=== PATIENT | female | born 2000 | race Caucasian/White ===

== ENCOUNTER 2020-09-02 17:59 | Outpatient (REF) | payer MEDICAID, SELFPAY ==
[2020-09-05 14:06] LABS: N gonorrhoeae amplified RNA Negative (Negative); Source URINE
[2020-09-06 10:45] LABS: Chlamydia amplified RNA Positive (Negative)
== END 2020-09-02 18:19 ==
LOC: LBN 17:59
PROVIDERS: PCP Student in an Organized Health Care Education/Training Program; Visit Provider Student in an Organized Health Care Education/Training Program
DX: Z20.2 Contact with and (suspected) exposure to infections with a predominantly sexual mode of transmission (principal)
CPT/HCPCS: 87491; 87591

== ENCOUNTER 2020-09-08 01:43 | Outpatient (CLI) | payer MEDICAID, SELFPAY ==
[2020-09-08 08:55] LABS: HCT 40.2 % (36.0-46.0); MCH 28.4 pg (27.0-33.0); MCHC 32.3 % (32.0-36.0); MPV 10.5 fL (8.0-11.0); Platelet Count 237 10^3/uL (130-400); RBC 4.57 10^6/uL (3.93-5.22); RDW 13.4 % (11.7-14.6); WBC 8.15 10^3/uL (4.4-10.8)
[2020-09-08 10:46] LABS: Anion Gap 10.9 mmol/L (3-11); BUN 15 mg/dL (7-18); CO2 26.1 mmol/L (21.0-32.0); CREATININE 0.94 mg/dL (0.55-1.02); Calcium 8.9 mg/dL (8.5-10.1); Chloride 105 mmol/L (98-107); Glucose 75 mg/dL (74-106); Sodium 142 mmol/L (136-145); TSH (W/Ref FT4) 1.48 uIU/mL (0.36-3.74)
[2020-09-09 18:58] LABS: HBV DNA Detect/Quant, PCR Undetected IU/mL (Undetected)
[2020-09-10 09:43] LABS: HIV-1/2 Ag & Ab Screen Negative (Negative)
[2020-09-10 11:29] LABS: Syphilis Total Ab w/Reflex Nonreactive (Nonreactive)
== END 2020-09-08 02:03 ==
PROVIDERS: PCP Student in an Organized Health Care Education/Training Program; Visit Provider Student in an Organized Health Care Education/Training Program
DX: F32.9 Major depressive disorder, single episode, unspecified (principal); R63.5 Abnormal weight gain; Z86.2 Personal history of diseases of the blood and blood-forming organs and certain disorders involving the immune mechanism; Z20.2 Contact with and (suspected) exposure to infections with a predominantly sexual mode of transmission; Z13.1 Encounter for screening for diabetes mellitus; E86.0 Dehydration; Z83.3 Family history of diabetes mellitus
CPT/HCPCS: 36415; 80048; 85027; 87389; 87517; 84443; 86592; 86780

== ENCOUNTER 2020-09-21 00:39 | Outpatient (CLI) | payer MEDICAID, SELFPAY ==
--- NOTE | 2020-09-21 07:15 | DI.US_ITS ---
EXAM: US BREAST LT LIMITED CLINICAL HISTORY: Evaluation of papule,SKIN LESION, N64.9, DRAINAGE WITHOUT RESOLUTION TECHNIQUE: Ultrasound performed using standard protocol. COMPARISON: No exams were available for comparison FINDINGS: Ultrasound examination of left breast was performed to evaluate a small cyst subcutaneous nodule with associated skin papule. This corresponds to 4 millimeter in diameter subcutaneous low echogenicity lesion, probably cystic, no Doppler flow identified in the area. This is well circumscribed and homo geneous. IMPRESSION: 4 millimeters subcutaneous benign-appearing nodule, possible small sebaceous cyst. Clinical follow-u p recommended. DATA REPOSITORY:
== END 2020-09-21 00:59 ==
PROVIDERS: PCP Student in an Organized Health Care Education/Training Program; Visit Provider Student in an Organized Health Care Education/Training Program
DX: N60.02 Solitary cyst of left breast (principal); N64.89 Other specified disorders of breast
CPT/HCPCS: 76642

== ENCOUNTER 2022-08-15 09:27 | Emergency (ER) | payer MEDICAID, SELFPAY ==
[2022-08-15 09:32] VITALS: BP 137/88; PULSE 99; RESP 20; TEMP 36.8; O2SAT 99
--- NOTE | 2022-08-15 10:00 | ED.GENADUL_ITS ---
Discharge Plan Disposition Patient Disposition: 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 then 2/week as needed bupropion HCl 150 mg tablet extended release 24 hr 150 mg PO BID Qty: 180 3RF Rx Instructions: Re-start, start @ 1 pill daily x 1 week .. then BID magnesium oxide 500 mg tablet 500 mg PO QHS Qty: 90 1RF PNV [id number]-dha 90 mg iron- 1 mg-200 mg capsule 1 cap PO DAILY Qty: 90 3RF Rx Instructions: Trial for FOLATE deficiency .. monitor BM with iron intake. Medical Decision Making 22-year-old F at 27w6d based on EVA 11/08/22 with history of ectopic with salpingectomy in 2017 and history of miscarriage at 5 weeks in October 2021 who presents with vaginal discharge and mild abdominal cramping this morning. Vitals within normal limits. Patient appears comfortable and nontoxic. Her abdomen is soft and nontender. Will call OB for recommendations. Case discussed with Dr. Moran who accepts patient for transfer to L&D for monitoring and NST. Discussed that patient is considering switching her care to [facility]. HPI General Mode of arrival: ambulatory . Date/Time Provider Initiated Documentation: 08/15/22 09:35 . Limitations to Documentation: no limitations . Information obtained by: patient . HPI Narrative: Patient is a 22-year-old female with h/o ectopic in 2018 with salpingectomy in [place] and h/o miscarriage at 5 weeks in October 2021 who presents for vaginal discharge and mild abdominal cramping this morning. Pt states she noticed that her underpants were wet this morning and noticed a large amount of clear yellow and tacky sticky discharge in her underwear. She then went to work and noticed mild abdominal cramping. She denies fever, vomiting, or vaginal bleeding. She states she is followed by [facility] and did not call them this morning because she did not want to bother them. Patient is unsure of her first date of her last period but states her delivery date is November 08 based on dating ultrasound. She states she was thinking of switching to OB here as it is closer to where she lives. Related Data Home Medications Medication Instructions Recorded Confirmed bupropion HCl 150 mg 24 hr tablet, 150 mg PO BID #180 tabs 07/19/21 04/18/22 extended release ketoconazole 2 % shampoo 1 applic topical ONCE #120 mL 07/19/21 04/18/22 magnesium oxide 500 mg tablet 500 mg PO QHS #90 tabs 01/17/22 08/15/22 vitamin no.102-iron 90 1 cap PO DAILY #90 caps 01/25/22 08/15/22 mg-folate 1 mg-dha 200 mg capsule Previous Rx's Medication Instructions Recorded bupropion HCl 150 mg 24 hr tablet, 150 mg PO BID #180 tabs 07/19/21 extended release ketoconazole 2 % shampoo 1 applic topical ONCE #120 mL 07/19/21 magnesium oxide 500 mg tablet 500 mg PO QHS #90 tabs 01/17/22 vitamin no.102-iron 90 1 cap PO DAILY #90 caps 01/25/22 mg-folate 1 mg-dha 200 mg capsule Allergies Allergy/AdvReac Type Severity Reaction Status Date / Time No Known Allergies Allergy Verified 04/18/22 13:56 General 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: 3 Review of Systems All systems reviewed & are unremarkable except as noted in HPI and below Constitutional Constitutional: Reports as per HPI, Denies chills and Denies fever(s) Eyes Eyes: Denies blurry vision ENT Ears, Nose, Mouth, and Throat: Denies dizziness, Denies sore throat and Denies throat swelling Cardiovascular Cardiovascular: Denies chest pain and Denies dyspnea Respiratory Respiratory: Denies cough and Denies dyspnea Gastrointestinal Gastrointestinal: Reports abdominal pain (intermittent abdominal cramping), Denies diarrhea and Denies vomiting Genitourinary Genitourinary: Denies hematuria, Denies dysuria and Reports vaginal discharge Musculoskeletal Musculoskeletal: Denies back pain and Denies numbness Integumentary/Breasts Skin/Breast: Denies lesions and Denies rash Neurologic Neurologic: Denies dizziness, Denies localized weakness and Denies numbness Allergic/Immunologic Allergic/Immunologic: Denies throat swelling PFSH All Active Problems (Updated 08/15/22 @ 10:58 by Gayle Cleaning DO) Vaginal discharge (Acute) Abdominal cramping (Acute) Second trimester (Acute) (Acute) LMP 02/01/22 Malnutrition compromising bodily function (Acute) Bicornate uterus (Chronic 10/13/21) Nail avulsion, toe (Acute ~08/31/21) Ingrown toenail of left foot (Acute) Left ingrown nail ... [ ] Pod Skin lesion of breast (Acute) Nonhealing papule .. pt has attempted drainage with mixed success. No apparent resolution with clindamycin (topical) x 1 week. 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 Grand claude has mild-mod dementia and serious DM. Weight gain (Acute) Worked with [facility] in [place]. Consider [facility] [ ] Hx taking Phentermine with some help. Situational anxiety (Acute) Depression (Chronic) Medical History (Updated 08/15/22 @ 10:58 by Gayle Cleaning DO) Ectopic Exposure to sexually transmitted disease (STD) Ingrown toenail of right foot Hx RT ingrown toenail w/infection .. resolved post surgery, but partial re- grown of nailbed? nail? ([facility]) Surgical History (Updated 04/19/22 @ 10:55 by Jenna Joiner RN) S/P dilation and curettage (~08/2018) S/P ectopic (~08/2018) left uterine horn resected Family History Mother Anxiety Depression Father Anxiety Depression Heart disease Hypertension Brother Anxiety Maternal Grandmother Depression Diabetes Hypertension Paternal Grandmother Depression Paternal Grandfather Esophagus cancer Social History Smoking/Tobacco Use Status: Never Smoking risk assessment performed?: Yes Alcohol Intake: never Drug use: Never Substance use type: does not use Adopted: No Do you need help understanding health information?: Never Sexually active: Yes Do you think of yourself as: straight/heterosexual Current gender identity: female Do you feel safe at home: Yes Do you feel safe in your relationship?: Yes Exam Const General: cooperative, healthy appearing and no acute distress [facility] Head: normal to inspection Face and sinus: normal facial exam Eyes General: appearance normal, both eyes and all related structures Pupils: PERRL EOM: EOM intact bilaterally Neck Neck: normal visual inspection and No submandibular swelling Lymphatic: no lymphadenopathy noted Chest Chest: normal inspection of the chest and no tenderness Resp Effort & Inspection: normal respiratory effort and able to speak in complete sentences Auscultation: clear to auscultation bilaterally Cardio Rate: regular rate Rhythm: regular rhythm GI Inspection: normal to inspection and obesity Palpation: soft, not firm, not rigid and nontender Auscultation: hypoactive bowel sounds Back/Spine/Pelvis Thoracic/Lumbar Spine: thoracic and lumbar spine normal to inspection Pelvis: no pain with anterior-posterior compression Skin General skin exam: no rashes or lesions noted Neuro General: patient alert, patient awake and patient oriented x3 Cognition: normal cognition Speech: speech normal Motor: muscle tone normal throughout Sensory Exam: no sensory deficits noted Extrem General: normal to inspection, full ROM, capillary refill normal, no calf tenderness bilaterally and no edema Psych Appearance: grossly normal Mental Status: mental status grossly normal Speech and Movement: speech and movement normal Affect: normal affect Course Vital Signs Vital signs: Vital Signs Temperature 98.2 F 08/15/22 09:32 Pulse 99 H 08/15/22 09:32 Respiratory Rate 20 08/15/22 09:32 Blood Pressure 137/88 08/15/22 09:32 Pulse Oximetry 99 08/15/22 09:32 Temperature 98.2 F 08/15/22 09:32 Temperature Source Oral 08/15/22 09:32 Pulse 99 H 08/15/22 09:32 Respiratory Rate 20 08/15/22 09:32 Respiratory Effort Non-Labored 08/15/22 09:52 Blood Pressure 137/88 08/15/22 09:32 Pulse Oximetry 99 08/15/22 09:32 Oxygen Delivery Method Room Air 08/15/22 09:32 Oxygen Flow Rate 0 08/15/22 09:32
[2022-08-15 11:26] VITALS: BP 104/63; PULSE 79
[2022-08-15 11:44] VITALS: BP 104/63; PULSE 79; TEMP 36.8
[2022-08-15 12:33] VITALS: BP 104/63; PULSE 79; TEMP 36.8
--- NOTE | 2022-08-15 12:33 | W.OBNST ---
Date of service: 08/15/22 Time of Service: 12:33 NST Evaluation Reason for NST Reasons for Nonstress Test: OTHER, SEE COMMENT Reason for NST Other: Assess wellbeing Test and Monitor Explained Test/Monitor Explained: Test Explained, Monitor Explained and Patient Verbalized Understanding Vital Signs Blood Pressure: 104/63 Pulse: 79 Temperature: 98.2 F Urine Results Urine Protein: Negative Urine Ketones: Positive Urine Glucose: Negative Urine Blood: Negative NST Information Date on Monitor: 08/15/22 Time on Monitor: 11:12 Date off Monitor: 08/15/22 Time off Monitor: 11:37 Total Time on Monitor: 25 NST Interventions: PO Hydration NST Evaluation Patient States Movement: Present FHR Baseline: 125 Variability: Moderate 6-25 bpm Accelerations: 15x15 Decelerations: None NST Results: Reactive Note NST Note Note: Category 1 tracing, reactive for 28 weeks. Transition of care to [facility] NST Reviewed and Verified by: Annabelle Moran
== END 2022-08-15 11:04 | disposition short-term general hospital (02) ==
LOC: ER 10:58 → OBS 11:59
PROVIDERS: Emergency Provider Physician Assistant; PCP Student in an Organized Health Care Education/Training Program
DX: O26.892 Other specified pregnancy related conditions, second trimester (principal); Z3A.27 27 weeks gestation of pregnancy; N89.8 Other specified noninflammatory disorders of vagina; R10.9 Unspecified abdominal pain
CPT/HCPCS: 99285; 59025

== ENCOUNTER 2022-08-18 00:48 | Observation (INO) | payer MEDICAID, SELFPAY ==
[2022-08-18 00:06] VITALS: BP 106/62; PULSE 81
--- NOTE | 2022-08-18 00:33 | W.OBNST ---
Date of service: 08/18/22 Time of Service: 01:27 NST Evaluation Reason for NST Reasons for Nonstress Test: OTHER, SEE COMMENT Reason for NST Other: cramping and bloody discharge Gestational Age Gestational Age in Weeks and Days: 28 Weeks and 1Days Test and Monitor Explained Test/Monitor Explained: Test Explained and Monitor Explained Vital Signs Blood Pressure: 106/62 Pulse: 82 NST Information Time on Monitor: 23:47 Date off Monitor: 08/18/22 Time off Monitor: 00:08 NST Interventions: None NST Evaluation Patient States Movement: Present FHR Baseline: 145 Variability: Moderate 6-25 bpm Decelerations: None NST Results: Reactive Note NST Note Note: NST was reactive and reassuring. See outpatient assessment for continued care for contractions. FERNANDO NST Reviewed and Verified by: Joceline Puckett
--- NOTE | 2022-08-18 00:35 | HPE_ITS ---
Date of service: 08/18/22 Time of Service: 01:07 Assessment and Plan Assessment and plan (1) uterine contractions: Status: Acute Assessment and plan: 1. GC CT, vaginal pathogen and GBS otained, records release for labs from [facility] faxed 2. Representative [facility] through [facility], they have NICU on diversion and cannot accept at this time. Dr. Meek, [facility] recommends Betamethasone and IV fluids but no magnesium sulfate unless dilating and no antibiotics at this time. 3. Representative then called transfer line at [facility] and I am awaiting call back from them to discuss possible transfer 4. Representative requested OB fire control technician, Dr. Caraballo to attend 5. Will continue to reassess for any changes and manage as indicated. FERNANDO OB-HPI Labor/Delivery History of Present Illness Reason for Visit: contractions Chief Complaint: Suspected Labor. EVA Calculator Estimated Delivery Date Method Current WG Current Estimate 11/08/22 LMP (Certain) 28w 2d Other Estimates 11/13/22 Ultrasound #1 27w 4d Comments: Had cramping today that happened every few hours, went home to rest. Napped from [id number] with reported tossing and turning woke and went to where she noted moderate amount of vaginal mucous with blood. She came to [facility] as she is hoping to transfer here for her care from [facility]. Records release obtained and sent tonight for her labs. She has an initial visit here next week. She had been seen here in triage 08/[address] oMran for cramping and reports that cervix was long thick and closed at that time. History of Present Assessment: Other (requested records from [facility]) Informed Consent Informed Consent: Risk,Benefits,Alternatives Discussed ( labor management and probable transfer to hospital with NICU) Review of Systems All systems reviewed & are unremarkable except as noted in HPI and below (uterine cramping, bloody mucou) Constitutional Constitutional: Reports as per HPI Genitourinary Comments: bloody mucous at 2245 on 08/17/22 and again at 0015 today. 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 [ ] Pod Skin lesion of breast (Acute) Nonhealing papule .. pt has attempted drainage with mixed success. No apparent resolution with clindamycin (topical) x 1 week. 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 Grand mo has mild-mod dementia and serious DM. Weight gain (Acute) Worked with [facility] in [place]. Consider [facility] [ ] Hx taking Phentermine with some help. Situational anxiety (Acute) Depression (Chronic) Medical History Ectopic Exposure to sexually transmitted disease (STD) Ingrown toenail of right foot Hx RT ingrown toenail w/infection .. resolved post surgery, but partial re- grown of nailbed? nail? ([facility]) Surgical History S/P dilation and curettage (~08/2018) S/P ectopic (~08/2018) left uterine horn resected Family History Mother Anxiety Depression Father Anxiety Depression Heart disease Hypertension Brother Anxiety Maternal Grandmother Depression Diabetes Hypertension Paternal Grandmother Depression Paternal Grandfather Esophagus cancer Social History Smoking/Tobacco Use Status: Never Smoking risk assessment performed?: Yes Alcohol Intake: never Drug use: Never Substance use type: does not use Adopted: No Do you need help understanding health information?: Never Sexually active: Yes Do you think of yourself as: straight/heterosexual Current gender identity: female Do you feel safe at home: Yes Do you feel safe in your relationship?: Yes Female Reproductive History Menstrual Date of last menstrual period: 02/01/22 History History 2 Para 0 Hx # Term Pregnancies 0 Multiple births 0 Hx # Pregnancies 0 Ectopic pregnancies 1 AB induced 0 Hx Number of Living Children 0 AB spontaneous 0 Past Pregnancies Del. Date GA/Weeks # Preg Succ Route Wgt Sex Labor Lgth Anesth esia Location Prov Complic 08/22/18 6 No No Delivery Date: 08/22/18 Last Updated by: Joceline Puckett, JOSUÉ ectopic in left horn of bicornate uterus, horn removed and tube from left at that time, now unicornate uterus Meds Allergies and Home Medications Allergies Allergy/AdvReac Type Severity Reaction Status Date / Time No Known Allergies Allergy Verified 08/18/22 00:57 Home Medications Medication Instructions Recorded Confirmed Type bupropion HCl 150 mg 24 hr tablet, 150 mg PO BID #180 tabs 07/19/21 08/18/22 Rx extended release ketoconazole 2 % shampoo 1 applic topical ONCE #120 mL 07/19/21 08/18/22 Rx magnesium oxide 500 mg tablet 500 mg PO QHS #90 tabs 01/17/22 08/18/22 Rx vitamin no.102-iron 90 1 cap PO DAILY #90 caps 01/25/22 08/18/22 Rx mg-folate 1 mg-dha 200 mg capsule Exam Physical Exam Vital signs: Pulse BP 81 106/62 08/18/22 00:06 08/18/22 00:06 Vital Signs Reviewed: Yes Constitutional Constitutional: mild distress (concerned for baby) Detailed Labor and Delivery Exam Dilation: 0 Effacement (%): 75 station: -2 Cervix position: posterior Consistency: soft Hernández Score: Cervical Points Exam 0 1 2 3 Dilation Closed 1-2cm 3-4 cm 5-6cm Effacement 0-30% 40-50% 60-70% 80% Consistency Firm Medium Soft Station -3 -2 -1,0 +1,+2 Position Posterior Mid Anterior HERNÁNDEZ Score(Cervical Ripeness Score): 5 Amniotic Membrane Status: Intact Monitor Mode: External Contraction Frequency(min): irregular Contraction Duration(sec): irregular Contraction Intensity: Mild Comments: difficult to palpate but patient reports as cramping Fetus A Heart Rate Baseline: 145 Monitor Accelerations: 10 X 10 Monitor Decelerations: None Variability: Moderate (6-25 BPM) Categories: Category I HEENT Exam HEENT Exam: Normal Neck Exam Neck Exam: Normal (visual exam) Chest/Brest/Axilla Exam Chest Exam: Not Done Breast Exam Breast Exam: Not Done Respiratory Exam Respiratory Exam: Normal Cardiovascular Exam Cardiovascular Exam: Normal Abdominal Exam Abdominal Exam: Normal (gravid, size equals dates) Exam Exam: Abnormal (+ bloody vaginal discharge at OS, cervix feels effaced but not dilated, reported to be long thick and closed 08/15/22) Extremities Exam Extremities Exam: Normal Back/Spine/Pelvis Exam Back Exam: Not Done Pelvis Adequate: Yes Skin Exam Skin Exam: Normal Neurological Exam Neurological Exam: Normal Psychiatric Exam Psychiatric Exam: Normal Results Results Group Beta Strep: Done-Result Unknown Lab Results: labs records requested tonight from [facility]. Type and screen being done here with CBC, GC CT obtained and vaginal pathogen obtained as well as GBS here tonight. Risk Assessment Risks Reviewed Risks Reviewed Upon Admission: No ( 28 weeks, plan transfer)
[2022-08-18] MEDS: Betamet Acet/Betamet Na Ph Inj. 30 MG/5 ML 12 MG IM (01:13)
[2022-08-18 01:19] LABS: HCT 35.6 % (36.0-46.0); HGB 11.7 g/dL (11.2-15.7); MCH 28.1 pg (27.0-33.0); MCHC 32.9 % (32.0-36.0); MCV 86 fL (80-95); MPV 10.7 fL (8.0-11.0); Platelet Count 179 10^3/uL (130-400); RBC 4.16 10^6/uL (3.93-5.22); RDW 13.2 % (11.7-14.6); RDW-SD 40.5 fL; WBC 13.09 10^3/uL (4.4-10.8)
[2022-08-18 01:26] VITALS: BP 106/62; PULSE 82
[2022-08-18 01:36] LABS: Source Nasal/Nares
--- NOTE | 2022-08-18 02:01 | PGE_ITS ---
Date of service: 08/18/22 Time of Service: 14:00 Informed Consent Informed Consent: Risk,Benefits,Alternatives Discussed ( labor management and probable transfer to hospital with NICU) Pelvic Exam Comments: A repeat cervical exam by Ameena Puckett @1:40 revealed that her cervix was now finger tip dilated. Fetus A Monitor: External (US) Heart Rate Baseline: 130 Presentation: Breech Variability: Moderate (6-25 BPM) Accelerations: 15 X 15 Decelerations: None Assessment Note: Bedside sono revealed breech presentation Assessment and Plan Assessment and plan (1) Abdominal cramping: Status: Acute Assessment and plan: Sherice is a @28.2wks with labor. She is not having regular contractions but she is crampy and her cervix has changed from closed to fingertip dilated and her cervix is thinned out. She received betamethasone for lung maturity. Magnesium for neuroprotection not recommended yet (per receiving M). GBS and vag path swabs collected. Covid test pending. [facility] was [facility] diversion so [facility] was called and available to take her. Due to no ambulance being available for at least several hours, a helicopter is being sent from [facility] for transport. (2) Vaginal bleeding during : Status: Acute Assessment and plan: Rhogam given due to Rh neg status. Objective Abnormal lab results 08/18/22 Range/Units 01:10 WBC 13.09 H (4.4-10.8) 10^3/uL Hct 35.6 L (36.0-46.0) % Pulse BP 81 106/62 08/18/22 00:06 08/18/22 00:06 Laboratory Results WBC 13.09 10^3/uL (4.4-10.8) H 08/18/22 01:10 RBC 4.16 10^6/uL (3.93-5.22) 08/18/22 01:10 Hgb 11.7 g/dL (11.2-15.7) 08/18/22 01:10 Hct 35.6 % (36.0-46.0) L 08/18/22 01:10 MCV 86 fL (80-95) 08/18/22 01:10 MCH 28.1 pg (27.0-33.0) 08/18/22 01:10 MCHC 32.9 % (32.0-36.0) 08/18/22 01:10 RDW 13.2 % (11.7-14.6) 08/18/22 01:10 Plt Count 179 10^3/uL (130-400) 08/18/22 01:10 MPV 10.7 fL (8.0-11.0) 08/18/22 01:10 COVID-19 Source Nasal/Nares 08/18/22 01:30 Patient ABO/Rh A Negative 08/18/22 01:10 Antibody Screen NEGATIVE 08/18/22 01:10 Subjective Interval history since last seen: Sherice was discussed and evaluated with Kaycee Puckett CNM. Results Hemoglobin/Hematocrit: Hgb 11.7 g/dL (11.2-15.7) 08/18/22 01:10 Hct 35.6 % (36.0-46.0) L 08/18/22 01:10 Abnormal Lab Findings: Abnormal Labs 08/18/22 01:10 WBC 13.09 H Hct 35.6 L
[2022-08-18 02:03] LABS: COVID-19 PCR Negative (Negative)
[2022-08-18] MEDS: Indomethacin 25 MG CAP 50 MG PO (03:51)
--- NOTE | 2022-08-18 03:54 | PGE_ITS ---
Date of service: 08/18/22 Time of Service: 03:40 Informed Consent Informed Consent: Risk,Benefits,Alternatives Discussed ( labor management and probable transfer to hospital with NICU) Pelvic Exam Dilation: 1 Effacement (%): 90 station: 0 Assessment and Plan Assessment and plan (1) labor: Status: Acute Assessment and plan: Ambulance arriving for transport to [facility]. Given indomethacin. [facility] recommend against starting Magnesium sulfate yet. Objective Abnormal lab results 08/18/22 Range/Units 01:10 WBC 13.09 H (4.4-10.8) 10^3/uL Hct 35.6 L (36.0-46.0) % Pulse BP 81 106/62 08/18/22 00:06 08/18/22 00:06 Laboratory Results WBC 13.09 10^3/uL (4.4-10.8) H 08/18/22 01:10 RBC 4.16 10^6/uL (3.93-5.22) 08/18/22 01:10 Hgb 11.7 g/dL (11.2-15.7) 08/18/22 01:10 Hct 35.6 % (36.0-46.0) L 08/18/22 01:10 MCV 86 fL (80-95) 08/18/22 01:10 MCH 28.1 pg (27.0-33.0) 08/18/22 01:10 MCHC 32.9 % (32.0-36.0) 08/18/22 01:10 RDW 13.2 % (11.7-14.6) 08/18/22 01:10 Plt Count 179 10^3/uL (130-400) 08/18/22 01:10 MPV 10.7 fL (8.0-11.0) 08/18/22 01:10 COVID-19 Source Nasal/Nares 08/18/22 01:30 SARS-CoV-2 (PCR) Negative (Negative) 08/18/22 01:30 Patient ABO/Rh A Negative 08/18/22 01:10 Antibody Screen NEGATIVE 08/18/22 01:10 Subjective Interval history since last seen: Pt uncomfortable and crampy. Results Hemoglobin/Hematocrit: Hgb 11.7 g/dL (11.2-15.7) 08/18/22 01:10 Hct 35.6 % (36.0-46.0) L 08/18/22 01:10 Abnormal Lab Findings: Abnormal Labs 08/18/22 01:10 WBC 13.09 H Hct 35.6 L 08/18/22 00:27 Vaginal Vaginitis Screen - Final
[2022-08-19 19:45] LABS: Chlamydia Result Negative (Negative); GC Result Negative (Negative)
== END 2022-08-18 04:00 ==
PROVIDERS: Admitting Provider Advanced Practice Midwife; PCP Student in an Organized Health Care Education/Training Program; Visit Provider Advanced Practice Midwife
DX: O60.02 Preterm labor without delivery, second trimester (principal); O46.92 Antepartum hemorrhage, unspecified, second trimester; Z20.822 Contact with and (suspected) exposure to COVID-19; Z3A.27 27 weeks gestation of pregnancy; O99.342 Other mental disorders complicating pregnancy, second trimester; Z79.899 Other long term (current) drug therapy; F41.8 Other specified anxiety disorders; O25.12 Malnutrition in pregnancy, second trimester; O32.1XX0 Maternal care for breech presentation, not applicable or unspecified
CPT/HCPCS: 36415; 85027; 86850; 86900; 86901; 87491; 87591; 87635; 90384; 59025; 87081; 87086; 87480; 87510; 87660; G0378; J0702; J2790

== ENCOUNTER 2025-08-07 11:49 | Emergency (ER) | payer MEDICAID, SELFPAY ==
[2025-08-07 11:51] VITALS: BP 132/63; PULSE 94; RESP 18; TEMP 36.7; O2SAT 98
[2025-08-07 12:02] VITALS: BP 132/63; PULSE 94; RESP 18; TEMP 36.7; O2SAT 98
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
--- NOTE | 2025-08-07 12:15 | DI.CT_ITS ---
Exam(s) CT ABDOMEN PELVIS W EXAM: CT ABDOMEN PELVIS W CLINICAL HISTORY: LLQ tenderness. TECHNIQUE: Imaging Protocol: Axial computed tomography images with coronal and sagittal reformatted images were created and reviewed CONTRAST MATERIAL: Intravenous: Omnipaque 350 Contrast volume:100 ml Oral: no COMPARISON: No exams were available for comparison FINDINGS: ABDOMEN and PELVIS: Lung Bases: No acute findings. Liver: Normal density. No suspicious mass. Gallbladder and biliary tract: No radiodense calculus. No wall thickening or pericholecystic fluid. No biliary dilation. Pancreas: Normal density. No abnormal calcifications or inflammatory process. No evidence of mass. Spleen: Normal. Kidneys: Normal size, contour and axis. No radiodense stones. No obstructive uropathy. No suspicious masses seen. Adrenal glands: No masses seen. Vasculature: Abdominal aorta non-dilated. Soft tissues: Unremarkable. Bladder: No gross wall thickening. No calculi.No focal mass. Bowel: No obstruction. No bowel wall thickening. Appendix normal. Normal quantity of stool. Peritoneal cavity: No ascites. No focal collection. No mesenteric inflammatory response. No free air. Bones: Unremarkable for age. Reproductive organs: Unremarkable 4.9 centimeter left ovarian cyst. This cyst appears simple. There is no evidence of torsion. The right ovary appears normal. Lymph nodes: No pathologically enlarged lymph nodes. IMPRESSION:: 4.9 centimeter left ovarian cyst. RADIATION DOSE DELIVERED: 1,271.28mGy.cm Total DLP DATA REPOSITORY: All CT scans at this facility are submitted to the National Radiology Data Registry (NRDR) Dose Index Registry (DIR) with the [employer] (ACR). RADIATION OPTIMIZATION: All CT scans at this facility use at least one of these dose optimization techniques: automated exposure control; mA and/or kV adjustment per patient size (includes targeted exams where dose is matched to clinical indication); or iterative reconstruction.
[2025-08-07 12:46] LABS: Abs Immature Grans 0.03 10^3/uL (0.0-0.06); HCT 39.7 % (36.0-46.0); HGB 12.5 g/dL (11.2-15.7); Immature Grans % 0.3 %; MCH 25.4 pg (27.0-33.0); MCHC 31.5 % (32.0-36.0); MCV 81 fL (80-95); MPV 10.0 fL (8.0-11.0); Platelet Count 275 10^3/uL (130-400); RBC 4.92 10^6/uL (3.93-5.22); RDW 14.3 % (11.7-14.6); RDW-SD 41.6 fL; WBC 10.66 10^3/uL (4.4-10.8)
[2025-08-07 12:49] LABS: Glucose Negative (Negative)
[2025-08-07 13:01] LABS: RBC 0-2 HPF (0-2)
[2025-08-07 13:08] LABS: ALT 27 U/L (14-59); AST 27 U/L (15-37); Albumin 3.3 g/dL (3.4-5.0); Alkaline Phosphatase 75 U/L (46-116); Anion Gap 11.6 mmol/L (3-11); BUN 12 mg/dL (7-18); Bilirubin, Total 0.5 mg/dL (0.2-1.0); C-Reactive Protein 4.35 mg/dL (<or=0.5); CO2 23.4 mmol/L (21.0-32.0); Calcium 8.8 mg/dL (8.5-10.1); Chloride 105 mmol/L (98-107); Estimated GFR 122.25 (mL/min/1.73m2); Glucose 84 mg/dL (74-106); Lipase 34 U/L (<78); Potassium 4.9 mmol/L (3.5-5.1); Sodium 140 mmol/L (136-145); Total Protein 7.8 g/dL (6.4-8.2)
[2025-08-07] MEDS: Normal Saline - Diluent 50 ML VIAL IJ (13:22)
[2025-08-07] MEDS: Normal Saline Flush 10 ML SYR IVP (13:23)
[2025-08-07] MEDS: Omnipaque 350 MG/ML 100 ML BTL IJ (13:23)
[2025-08-07 13:34] VITALS: BP 129/79; PULSE 70; RESP 18; O2SAT 99
--- NOTE | 2025-08-07 14:10 | DI.US_ITS ---
Exam(s) US PELVIS TRANSVAGINAL EXAM: US PELVIS TRANSVAGINAL CLINICAL HISTORY: evaluate L ovarian cyst for torsion TECHNIQUE: Transabdominal and transvaginal imaging was performed using standard protocol. COMPARISON: CT CT ABDOMEN PELVIS W from 08/07/2025 FINDINGS: The bladder is unremarkable. UTERUS: Anteverted. 6.4 x 2.8 x 1.5 cm Endometrium: 4 mm Myometrium: Unremarkable. Cervix: Unremarkable. OVARIES: Right: Cyst or mass: None. Left: Cyst or mass: 4.9 x 4.2 x 4.2 centimeter left ovarian cyst. No evidence torsion. DOPPLER: Color: Symmetric and uniform flow to both ovaries. No hyperemia. CUL-DE-SAC: Free fluid: None. IMPRESSION: 1. Normal-appearing uterus with endometrial stripe within normal limits. 2. 4.9 centimeter left ovarian cyst. No evidence of torsion. DATA REPOSITORY:
--- NOTE | 2025-08-07 18:13 | NUR.NOTE ---
chart accessed to review prescription sent to pharmacy per phone call from pt Nursing Note:
== END 2025-08-07 15:52 | disposition home or self-care (01) ==
PROVIDERS: Emergency Provider Physician Assistant
DX: R10.32 Left lower quadrant pain (principal); N83.292 Other ovarian cyst, left side; B37.31 Acute candidiasis of vulva and vagina; Z59.89 Other problems related to housing and economic circumstances; Z60.8 Other problems related to social environment
CPT/HCPCS: 99284 ×2; 81025; 80053; 83690; 74177; 76830; 76856; 81003; 81015; 83605; 85025; 86140; J3490